=== PATIENT | female | born 1995 ===

== ENCOUNTER 2017-11-29 15:35 | Emergency (ER) | payer SELFPAY ==
[2017-11-29 15:39] VITALS: BP 114/80; PULSE 82; RESP 16; TEMP 99; O2SAT 99
== END 2017-11-29 15:37 | disposition left against medical advice (07) ==
LOC: C.ER 15:35
DX: Z02.89 Encounter for other administrative examinations (principal); N93.9 Abnormal uterine and vaginal bleeding, unspecified